=== PATIENT | male | born 1985 | race Caucasian/White ===

== ENCOUNTER 2018-10-08 00:09 | Emergency (ER) | payer OTHER ==
[~2018-10-08] VITALS: Ht 170.2 cm; Wt 104.5 kg
[~2018-10-08 00:09] MED LIST: SERT100T12 PO
[2018-10-08] MEDS ORDERED: ALBU8.5H8 IH (00:31)
[2018-10-08] MEDS ORDERED: LORazepam 2 MG TABLET PO ONE (02:00)
[2018-10-08 03:24] VITALS: BP 154/103
== END 2018-10-08 03:55 | disposition home or self-care (01) ==
LOC: EMS 00:10
DX: F41.9 Anxiety disorder, unspecified (principal); F32.9 Major depressive disorder, single episode, unspecified; F12.90 Cannabis use, unspecified, uncomplicated; Z79.899 Other long term (current) drug therapy